=== PATIENT | female | born 1985 | race Caucasian/White ===

== ENCOUNTER 2022-10-07 08:39 | Outpatient (CLI) | payer OTHER, SELFPAY | END 2022-10-07 08:40 | disposition home or self-care (01) | PROVIDERS: PCP Family Medicine; Visit Provider Obstetrics & Gynecology | DX: Z01.419 Encounter for gynecological examination (general) (routine) without abnormal findings (principal); N93.9 Abnormal uterine and vaginal bleeding, unspecified; Z12.4 Encounter for screening for malignant neoplasm of cervix | CPT/HCPCS: 80061; 84439; 84443 ==

== ENCOUNTER 2022-10-24 16:49 | Outpatient (CLI) | payer OTHER, SELFPAY ==
--- NOTE | 2022-10-24 17:00 | CRLHL7_ITS ---
For Patients: As a result of the Century Cures Act, medical imaging exams and procedure reports are released immediately into your electronic medical record. You may view this report before your referring provider. If you have questions, please contact your health care provider. INDICATION: 37 year-old female. Abnormal and heavy bleeding. TECHNIQUE: Transabdominal and transvaginal pelvic ultrasound. Grayscale images were acquired. FINDINGS: The uterus measures 9.8 x 5.2 x 6.3 cm. The endometrial stripe measures 1.3 cm transvaginally normal in a premenopausal female. No free pelvic fluid. The right ovary measures 3.1 x 1.9 x 2.3 cm. The left ovary measures 3.8 x 2.0 x 2.7 cm. IMPRESSION: Normal transabdominal and transvaginal pelvic ultrasound. Dictated by Junior Gallo MD @ 10/24/2022 7:35:21 PM (Electronically Signed)
== END 2022-10-24 16:50 | disposition home or self-care (01) ==
LOC: US 16:49
PROVIDERS: PCP Family Medicine; Visit Provider Obstetrics & Gynecology
DX: N93.9 Abnormal uterine and vaginal bleeding, unspecified (principal)
CPT/HCPCS: 76830; 76856

== ENCOUNTER 2024-05-30 15:20 | Outpatient (CLI) | payer OTHER, SELFPAY ==
--- NOTE | 2024-05-30 15:20 | CRLHL7_ITS ---
For Patients: As a result of the Century Cures Act, medical imaging exams and procedure reports are released immediately into your electronic medical record. You may view this report before your referring provider. If you have questions, please contact your health care provider. BILATERAL SCREENING MAMMOGRAM WITH COMPUTER-AIDED DETECTION AND TOMOSYNTHESIS TECHNIQUE: CC and MLO views were obtained. These mammographic images have been obtained using full-field digital technique. These mammographic images were interpreted with the benefit of computer-aided detection. Breast Tomosynthesis was used in this interpretation. COMPARISON FILM: Baseline. FINDINGS: There are scattered areas of fibroglandular density IMPRESSION: There is no radiographic evidence for malignancy. ASSESSMENT: BI-RADS Category 1: Negative RECOMMENDATION: Routine screening mammogram in 1 year. A lay language report of this examination will be provided to the patient. Eduar Glaser M.D. Diagnostic Radiologist [email or web address] Transcribed: 2:29 [email or web address] pimentel/Dictated by: Eduar Glaser MD @ 06/04/2024 12:50:00 PM (Electronically Signed)
== END 2024-05-30 15:21 | disposition home or self-care (01) ==
LOC: MAMMO 15:20
PROVIDERS: PCP Family Medicine; Visit Provider Obstetrics & Gynecology
DX: Z12.31 Encounter for screening mammogram for malignant neoplasm of breast (principal)
CPT/HCPCS: 77063; 77067

== ENCOUNTER 2024-11-01 10:30 | Outpatient (CLI) | payer OTHER, SELFPAY | END 2024-11-01 10:31 | disposition home or self-care (01) | PROVIDERS: PCP Family Medicine; Visit Provider Family Medicine | DX: N92.0 Excessive and frequent menstruation with regular cycle (principal); R53.83 Other fatigue; Z13.6 Encounter for screening for cardiovascular disorders | CPT/HCPCS: 80053; 80061; 84443 ==